=== PATIENT | male | born 1955 | race Caucasian/White ===

== ENCOUNTER 2025-06-07 13:42 | Inpatient (IN) | payer MEDICARE, OTHER ==
[~2025-06-07] VITALS: Ht 175.3 cm; Wt 86.2 kg
[~2025-06-07 13:42] MED LIST: LEVO125T68 PO; VALS1TAB4 PO
[2025-06-07 14:02] LABS: PLATELET COUNT (AUTO) 295 K/uL (150-450); RED BLOOD CELL COUNT(AUTO) 4.80 MIL/uL (4.5-6.0); RED CELL DISTRIBUTION WIDTH 14.2 % (11.5-15.0); WHITE BLOOD COUNT (AUTO) 12.7 K/uL (4.3-11.0)
[2025-06-07 14:12] LABS: CALCIUM, SERUM 8.8 mg/dL (8.5-10.1); CREATININE 1.0 mg/dL (0.6-1.3); SODIUM SERUM 136 mmol/L (136-145); UREA NITROGEN, BLOOD 22 mg/dL (7-18)
[2025-06-07] MEDS ORDERED: ALBUTEROL FS 2.5 MG/3 ML VIAL.NEB ONE (14:17)
[2025-06-07] MEDS ORDERED: IPRATROPIUM NEB FS 0.5 MG/2.5 ML AMPUL.NEB ONE (14:17)
[2025-06-07] MEDS: IPRATROPIUM NEB FS 0.5 MG/2.5 ML AMPUL.NEB NEB ONE (14:19)
[2025-06-07] MEDS: ALBUTEROL FS 2.5 MG/3 ML VIAL.NEB NEB ONE (14:19)
[2025-06-07 14:20] VITALS: O2SAT 96
[2025-06-07 14:23] LABS: LACTIC ACID 3.2 mmol/L (0.4-2.0)
[2025-06-07 14:25] LABS: ASPARTATE AMINOTRANSFERASE 27 U/L (15-37); NT-PRO BNP 306 pg/mL (0-125); TOTAL PROTEIN, SERUM 8.1 g/dL (6.4-8.2)
[2025-06-07] MEDS: IV NS 0.9% 500 ML BAG IV ONE (14:25)
[2025-06-07 14:35] LABS: ABG BASE EXCESS -3.3 mmol/L (-2.0-3.0); ABG OXYGEN SATURATION 98.1 % (94.0-98.0); ABG PCO2 29.3 mmHg (35.0-48.0); ABG PH 7.441 (7.350-7.450); ABG PO2 112.2 mmHg (83.0-108.0); ABG TOTAL HEMOGLOBIN 14.6 G/dL (13.5-17.5); FLOW, BLOOD GAS 8.00 L/min (0.00-30.00); FRACTIONATED INSPIRED OXYGEN 60.0 %; SITE, ABG RIGHT RADIAL
[2025-06-07 14:42] LABS: INR 1.06 (0.91-1.10)
[2025-06-07 14:46] VITALS: O2SAT 96
[2025-06-07] MEDS ORDERED: VALS1TAB8 PO (14:57)
[2025-06-07] MEDS ORDERED: ATOR20TA PO (14:57)
[2025-06-07] MEDS ORDERED: LEVO137T2 PO (14:57)
[2025-06-07] MEDS ORDERED: FLUT1BLS INH (14:57)
[2025-06-07] MEDS ORDERED: POTASSIUM CHLORIDE 20 MEQ TAB.PRT.SR PO ONE (15:07)
[2025-06-07] MEDS: POTASSIUM CHLORIDE 20 MEQ TAB.PRT.SR PO ONE (15:09)
[2025-06-07] MEDS: LEVOFLOXACIN 750 MG /D5W 150ML PIGGYBACK IV ONE (15:15)
[2025-06-07] MEDS ORDERED: ONDANSETRON HCL/PF 4 MG/2 ML VIAL IVP PRN (16:30)
[2025-06-07] MEDS ORDERED: HYDROCODONE/APAP 5/325MG TABLET PO PRN (16:30)
[2025-06-07] MEDS ORDERED: ACETAMINOPHEN 325 MG TABLET PO PRN (16:30)
[2025-06-07] MEDS ORDERED: ALBUTEROL FS 2.5 MG/3 ML VIAL.NEB NEB PRN (16:30)
[2025-06-07] MEDS ORDERED: MAGNESIUM HYDROXIDE 30 ML UDC PO PRN (16:30)
[2025-06-07] MEDS ORDERED: MAG HYDROX/AL HYDROX/SIMETH 30 ML UDC PO PRN (16:30)
[2025-06-07] MEDS ORDERED: IPRATROPIUM NEB FS 0.5 MG/2.5 ML AMPUL.NEB NEB PRN (16:30)
[2025-06-07] MEDS ORDERED: Z GUARD REMEDY 4 OZ OINT TP PRN (16:30)
[2025-06-07] MEDS ORDERED: TEMAZEPAM 15 MG CAPSULE PO PRN (16:30)
[2025-06-07] MEDS: ENOXAPARIN SODIUM 40 MG/0.4 ML DISP.SYRIN SQ SCH (18:44)
[2025-06-07 20:00] VITALS: BP 127/67; TEMP 97.5; O2SAT 98
[2025-06-07] MEDS: ALBUTEROL FS 2.5 MG/3 ML VIAL.NEB NEB SCH (20:27)
[2025-06-07 20:28] VITALS: O2SAT 97
[2025-06-07] MEDS: BUDESONIDE RESPULE INH 0.5 MG/2 ML AMPUL.NEB NEB SCH (20:28)
[2025-06-07 20:40] VITALS: O2SAT 97
[2025-06-07 20:50] VITALS: BP 127/67; TEMP 97.5; O2SAT 98
[2025-06-07] MEDS: ATORVASTATIN 10 MG TABLET PO SCH (21:24)
[2025-06-08] VITALS (15 sets, daily range): BP systolic 112–138; BP diastolic 68–99; TEMP 97.3–98.1; O2SAT 95–100
[2025-06-08 06:55] LABS: PLATELET COUNT (AUTO) 275 K/uL (150-450); RED BLOOD CELL COUNT(AUTO) 4.56 MIL/uL (4.5-6.0); RED CELL DISTRIBUTION WIDTH 14.8 % (11.5-15.0); WHITE BLOOD COUNT (AUTO) 12.9 K/uL (4.3-11.0)
[2025-06-08 07:21] LABS: CALCIUM, SERUM 8.9 mg/dL (8.5-10.1); CREATININE 1.0 mg/dL (0.6-1.3); PHOSPHORUS 3.3 mg/dL (2.5-4.9); SODIUM SERUM 141.0 mmol/L (136-145); UREA NITROGEN, BLOOD 18.0 mg/dL (7-18)
[2025-06-08] MEDS ORDERED: LEVOFLOXACIN 500 MG /D5W 100ML 500 MG/100 ML PIGGYBACK IV SCH (09:00)
[2025-06-08] MEDS: HYDROCHLOROTHIAZIDE 25 MG TABLET PO SCH (09:28)
[2025-06-08] MEDS: PANTOPRAZOLE 40 MG TABLET.DR PO SCH (09:29)
[2025-06-08] MEDS: LEVOFLOXACIN 500 MG /D5W 100ML 500 MG in PREMIX 1 EA IV SCH (09:29)
[2025-06-08] MEDS: VALSARTAN 80 MG TABLET PO SCH (09:29)
[2025-06-08] MEDS: LEVOTHYROXINE SODIUM 137 MCG TABLET PO SCH (09:29)
[2025-06-08 09:47] LABS: LDL 91.0 mg/dL (0-99)
[2025-06-09] VITALS (9 sets, daily range): BP systolic 118–148; BP diastolic 78–91; TEMP 97.5–98.1; O2SAT 75–99
[2025-06-09] MEDS ORDERED: ALBU8.5H8 INH (11:33)
[2025-06-09] MEDS ORDERED: FLUT1BLS IH (11:33)
[2025-06-09] MEDS ORDERED: LEVO500T90 PO (11:33)
[2025-06-09] MEDS ORDERED: METH4TAB17 PO (11:33)
== END 2025-06-09 16:16 | disposition home or self-care (01) | DRG 202 ==
LOC: ER 13:45 → TELE 17:12
PROVIDERS: ADMIT Nurse Practitioner Acute Care; ATTEND Nurse Practitioner Acute Care
DX: J45.901 Unspecified asthma with (acute) exacerbation (principal); J15.9 Unspecified bacterial pneumonia; E03.9 Hypothyroidism, unspecified; E78.5 Hyperlipidemia, unspecified; E87.6 Hypokalemia; I10 Essential (primary) hypertension; Z88.0 Allergy status to penicillin; Z20.822 Contact with and (suspected) exposure to COVID-19
CPT/HCPCS: 36415; 36600; 70220-TC; 71045-TC; 80048-TC; 80061-TC; 80076-TC; 82803-TC; 82962-TC; 83605-TC; 83735-TC; 83880; 84100-TC; 84484-TC; 85025-TC; 85730-TC; 87040-TC; 94760-TC; 94799-TC; A4216; A4223; G0378; J1650; J1956; J2919; J7040